=== PATIENT | male | born 1945 | race Caucasian/White ===

== ENCOUNTER → 2016-06-27 | Outpatient (CLI) | payer MEDICARE, BC ==
--- NOTE | 2016-06-28 08:44 | XR ---
EXAMINATION TYPE: XR Hip Complete RT DATE OF EXAM: 06/27/2016 4:39 PM COMPARISON: NONE HISTORY: Pain TECHNIQUE: 2 views submitted FINDINGS: There is no evidence of erosive change or acute fracture. Mild concentric narrowing of the joint space. Hypertrophic change of the acetabulum noted. IMPRESSION: 1. No evidence of acute fracture or dislocation. 2. Mild arthropathy correlate for femoral acetabular impingement. If symptoms persist consider MRI.
== END ==
LOC: RAD 16:20
PROVIDERS: ATTEND Physician Assistant Medical
DX: M16.11 Unilateral primary osteoarthritis, right hip (principal)
CPT/HCPCS: 73502

== ENCOUNTER → 2016-10-18 | Outpatient (CLI) | payer MEDICARE, BC ==
--- NOTE | 2016-10-18 14:03 | XR ---
Bilateral shoulders HISTORY: Chronic pain 3 views of each shoulder are submitted. No comparisons There is hypertrophic change of the acromioclavicular joints bilaterally. Lung apices as visualized a re normal. Bone mineralization, joint spaces and alignment are relatively maintained. IMPRESSION: Acromioclavicular joint arthropathy, consider shoulder MRI as indicated
== END | disposition home or self-care (01) ==
LOC: RADXRYALE 11:14
PROVIDERS: ATTEND Family Medicine
DX: M12.811 Other specific arthropathies, not elsewhere classified, right shoulder (principal); M12.812 Other specific arthropathies, not elsewhere classified, left shoulder

== ENCOUNTER → 2019-04-10 | Outpatient (CLI) | payer MEDICARE, BC ==
--- NOTE | 2019-04-10 10:35 | MR ---
EXAMINATION TYPE: MR brain wo/w con DATE OF EXAM: 04/10/2019 COMPARISON: None HISTORY: brain tumor, tremor, shaky hands TECHNIQUE: Multiplanar, multisequence images of the brain and brainstem is performed without and with IV contras t, utilizing 11 mL intravenous Gadavist . FINDINGS: Diffusion weighted images demonstrate no evidence of a recent infarct or other diffusion ab normality. There is no extra-axial fluid collection. Periventricular confluent and scattered hyperi ntensities are present on inversion recovery T2-weighted sequences, approximately 50 or more lesions are present. The ventricular system and cisternal spaces are normal in size and appearance. The bra in volume is age appropriate, there is cortical atrophy. Midline structures demonstrate normal morphology. The craniocervical junction appears within normal limits. Post contrast images demonstrate no abnormal enhancement. The dural venous sinuses appear pa tent. The visualized sinuses are clear and the globes are intact. IMPRESSION: Nonspecific white matter demyelination may be due to chronic small vessel ischemia, there is age-related atrophy.
== END | disposition home or self-care (01) ==
LOC: RADMRIMAIN 08:41
PROVIDERS: ATTEND Psychiatry & Neurology Neurology
DX: G31.1 Senile degeneration of brain, not elsewhere classified (principal); G37.8 Other specified demyelinating diseases of central nervous system; C71.9 Malignant neoplasm of brain, unspecified; G20 Parkinson's disease
CPT/HCPCS: 70553; A9585

== ENCOUNTER 2021-02-27 11:34 | Emergency (ER) | payer MEDICARE, BC ==
--- NOTE | 2021-02-27 16:39 | ED ---
General Adult HPI - General Chief complaint: Upper Respiratory Infection Stated complaint: covid+, fever & runny nose Time Seen by Provider: 02/27/21 16:24 Source: patient, RN notes reviewed Mode of arrival: ambulatory Limitations: no limitations - History of Present Illness Initial comments: Well-appearing 75-year-old male ambulatory in the emergency room, complaining of cough and congestion since Monday. States he had a recent Covid exposure. Patient states that he went to urgent care in [place] and was told by [facility] that his result is Covid positive. He is coming in for monoclonal antibody infusion. He does have a history of hypertension and high cholesterol. He denies any pain at this time. He states that he did get the 2 dose vaccine for coronavirus. He states that his is also positive. He denies any chest pain, shortness of breath, nausea, vomiting or diarrhea. -: days(s) (5) Location: head Severity scale (1-10): 0 Associated Symptoms: cough, headaches, other (congestion) - Related Data Home Medications Medication Instructions Recorded Confirmed Levothyroxine Sodium [Synthroid] 75 mcg PO DAILY 09/11/13 09/12/13 Metoprolol Succinate [Toprol XL] 200 mg PO DAILY 09/11/13 09/12/13 Pravastatin Sodium [Pravachol] 80 mg PO DAILY 09/11/13 09/12/13 Allergies Allergy/AdvReac Type Severity Reaction Status Date / Time No Known Allergies Allergy Verified 02/27/21 13:48 Review of Systems ROS Statement: Those systems with pertinent positive or pertinent negative responses have been documented in the HPI. ROS Other: All systems not noted in ROS Statement are negative. Past Medical History Past Medical History: Hyperlipidemia, Hypertension, Thyroid Disorder History of Any Multi-Drug Resistant Organisms: None Reported Past Surgical History: Tonsillectomy Additional Past Surgical History / Comment(s): COLONOSCOPY Past Anesthesia/Blood Transfusion Reactions: No Reported Reaction Smoking Status: Never smoker Past Alcohol Use History: None Reported Past Drug Use History: None Reported - Past Family History Father Family Medical History: Cancer General Exam Limitations: no limitations General appearance: alert, in no apparent distress Head exam: Present: atraumatic, normocephalic, normal inspection Eye exam: Present: normal appearance, EOMI ENT exam: Present: normal exam, normal oropharynx, mucous membranes moist Neck exam: Present: normal inspection, full ROM. Absent: tenderness, meningismus, lymphadenopathy Respiratory exam: Present: normal lung sounds bilaterally. Absent: respiratory distress, wheezes, rales, rhonchi, stridor Cardiovascular Exam: Present: regular rate, normal rhythm, normal heart sounds. Absent: systolic murmur, diastolic murmur, rubs, gallop, clicks GI/Abdominal exam: Present: soft, normal bowel sounds. Absent: distended, tenderness, guarding, rebound, rigid Back exam: Absent: tenderness, CVA tenderness (R), CVA tenderness (L) Neurological exam: Present: alert, oriented X3, normal gait Psychiatric exam: Present: normal affect, normal mood Skin exam: Present: warm, dry, intact, normal color. Absent: rash, cyanosis, diaphoretic, petechiae, pallor Course Vital Signs 02/27/21 02/27/21 13:46 20:09 Temperature 98.8 F 97.1 F L Pulse Rate 72 63 Respiratory 16 18 Rate Blood Pressure 152/83 137/74 O2 Sat by Pulse 97 98 Oximetry Medical Decision Making - Medical Decision Making This is a well-appearing 75-year-old male that presents to the emergency room after testing positive for Covid yesterday at urgent care. He was contacted by [facility] with a positive Covid result was requesting monoclonal antibodies today. He states that his symptoms started on Monday and he states his is also positive. He does have a history of hypertension and high cholesterol. He denies any pain at this time. He is not dyspneic, his oxygen saturation is 97% on room air. Patient is afebrile in the emergency room. He is Covid positive today in the emergency room. He tolerated his monoclonal antibodies infusion well. He was directed to follow up with his primary care doctor, return to the emergency room with any worsening symptoms. Told to self quarantine for 10 days from symptom onset and 24 hours without fever. Case was discussed with Dr. Tran - Lab Data Lab Results 02/27/21 Range/Units 17:20 Coronavirus (PCR) Detected A (Not Detectd) Disposition Clinical Impression: COVID-19 Disposition: HOME SELF-CARE Condition: Good Instructions (If sedation given, give patient instructions): Coronavirus Disease 2019 (COVID-19) Additional Instructions: Return to the emergency room with any new or worsening symptoms. Self quarantine for 10 days from symptom onset and 24 hours without fever. You can take Tylenol and Motrin as needed for body aches and pains. Vitamin C, vitamin D and zinc will help to support your immune system. Is patient prescribed a controlled substance at d/c from ED?: No Referrals: Alcides Lange MD [Primary Care Provider] - 1-2 days Time of Disposition: 20:06
[2021-02-27] MEDS ORDERED: SOTROVIMAB (EUA) 500 MG in SODIUM CHLORIDE 0.9% 100 ML IVPB ONE (18:15)
[2021-02-27] MEDS ORDERED: SODIUM CHLORIDE 0.9% 50 ML IVPB ONE (18:15)
[2021-02-27 20:10] VITALS: BP 137/74; PULSE 63; RESP 18; TEMP 97.1
== END 2021-02-27 20:09 | disposition home or self-care (01) ==
LOC: EC 11:34
DX: U07.1 COVID-19 (principal); I10 Essential (primary) hypertension; E78.5 Hyperlipidemia, unspecified; E07.9 Disorder of thyroid, unspecified; Z79.899 Other long term (current) drug therapy; Z79.890 Hormone replacement therapy
CPT/HCPCS: 99283; 87635; Q0247